=== PATIENT | male | born 1975 | race Caucasian/White ===

== ENCOUNTER 2022-09-17 12:29 | Emergency (ER) | payer BC ==
[2022-09-17] MEDS ORDERED: Take Home: Amoxicillin 500 MG Cap, 2 Cap Pack PO ONE (13:18)
[2022-09-17] MEDS ORDERED: Penicillin G Benzathine 1,200,000 Units/2 ML Syringe IM ONE (13:25)
[2022-09-17 13:32] LABS: CORONAVIRUS COVID-19 NAA NEGATIVE (NEGATIVE); RESPIRATORY SYNCYTIAL VIR NAA NEGATIVE (NEGATIVE)
== END 2022-09-17 13:55 | disposition home or self-care (01) ==
LOC: CC.ED 12:29
DX: J02.0 Streptococcal pharyngitis (principal); Z20.822 Contact with and (suspected) exposure to COVID-19
CPT/HCPCS: 0241U; 87430; 96372; 99283; 99284; J0561